=== PATIENT | female | born 1980 | race Caucasian/White ===

== ENCOUNTER → 2017-11-26 | Outpatient (CLI) | payer OTHER ==
[2017-11-26 18:35] LABS: HEMATOCRIT 37.1 % (36.0-47.0); HEMOGLOBIN 12.4 g/dL (12.0-15.5); MEAN CORPUSCULAR HGB CONC 33.4 g/dL (32.0-36.0); MEAN CORPUSCULAR VOLUME 87 fl (80-97); PLATELET COUNT 269 10^3/uL (150-450); RED BLOOD COUNT 4.27 10^6/uL (3.72-5.28); RED CELL DISTRIBUTION WIDTH 15.2 % (11.5-14.0); WHITE BLOOD COUNT 6.8 10^3/uL (4.0-10.5)
[2017-11-26 19:12] LABS: ALANINE AMINOTRANSFERASE 42 U/L (9-52); ALBUMIN 4.2 g/dL (3.5-5.0); ALKALINE PHOSPHATASE 59 U/L (38-126); ASPARTATE AMINO TRANSFERASE 39 U/L (14-36); BILIRUBIN,DIRECT 0.3 mg/dL (0.0-0.4); BILIRUBIN,TOTAL 0.3 mg/dL (0.2-1.3); TOTAL PROTEIN 7.1 g/dL (6.3-8.2)
[2017-11-28 10:34] LABS: HEPATITIS B CORE AB TOT Negative (Negative); HEPATITIS B SURFACE AB QUANT >1000.0 mIU/mL (Immunity>9.9)
[2017-11-29 06:39] LABS: HCV FIBROSURE ALT P5P 35 IU/L (0-40); HCV FIBROSURE GGT 8 IU/L (0-60); HCV FIBROSURE HAPTOGLOBIN 114 mg/dL (34-200); NECROINFLAM ACTIVITY GRADE A0-No activity (.); NECROINFLAMM ACTIVITY SCORE 0.13 (0.00-0.17)
[2017-11-29 13:38] LABS: HEPATITIS C QUANTITATION 5530000 IU/mL (.)
== END ==
LOC: OD 16:55
PROVIDERS: ATTEND Physician Assistant Surgical
DX: B18.2 Chronic viral hepatitis C (principal)
CPT/HCPCS: 36415; 80076; 81270; 82172; 82247; 82977; 83010; 83883; 84460; 85027; 86317; 86701; 86702; 86704; 87522